=== PATIENT | male | born 1965 | race African-American/Black ===

== ENCOUNTER 2016-09-12 05:39 | Emergency (ER) | payer BC, OTHER ==
[~2016-09-12] VITALS: Ht 195.6 cm; Wt 127.0 kg
[~2016-09-12 05:39] MED LIST: METF500T PO; RIVA20TA PO
[2016-09-12] MEDS ORDERED: MORPHINE SULFATE 2 MG/ML CPJ (NOT FOR IM USE) IV ONE (10:00)
[2016-09-12] MEDS ORDERED: KETOROLAC 30MG/ML VIAL IV NR (12:00)
[2016-09-12 12:39] VITALS: BP 150/84
== END 2016-09-12 12:53 | disposition home or self-care (01) ==
LOC: ER 05:39
DX: S00.93XA Contusion of unspecified part of head, initial encounter (principal); F17.200 Nicotine dependence, unspecified, uncomplicated; Z88.0 Allergy status to penicillin; W22.8XXA Striking against or struck by other objects, initial encounter; Y93.39 Activity, other involving climbing, rappelling and jumping off; Y99.8 Other external cause status; Y92.488 Other paved roadways as the place of occurrence of the external cause
CPT/HCPCS: 70450; 96374; 96375; 99284; J1885; J2270; Z7610

== ENCOUNTER 2017-11-26 21:49 | Emergency (ER) | payer OTHER ==
[~2017-11-26] VITALS: Ht 195.6 cm; Wt 123.0 kg
[2017-11-26 23:18] LABS: CLARITY URINE CLOUDY (CLEAR); COLOR URINE DARK YELLOW (YELLOW); KETONES URINE TRACE (NEGATIVE); LEUKOCYTE ESTERASE URINE NEGATIVE (NEGATIVE); NITRITE URINE NEGATIVE (NEGATIVE); OCCULT BLOOD URINE NEGATIVE (NEGATIVE); PH URINE 5.5 (4.5-8.0); PROTEIN URINE 1+ (NEGATIVE); SPECIFIC GRAVITY URINE 1.038 (1.005-1.030)
[2017-11-26 23:52] LABS: HEMATOCRIT. 43.2 % (42.0-52.0); HEMOGLOBIN. 14.3 g/dL (14.0-18.0); MEAN CORPUSCULAR HEMOGLOBIN 27.3 pg (28.0-32.0); MEAN CORPUSCULAR VOLUME 82.7 fL (80.0-94.0); MEAN PLATELET VOLUME 8.2 fl (7.4-10.4); PLATELET 229 x1000/uL (130-400); RED BLOOD CELL COUNT 5.23 mill/uL (4.7-6.1); RED CELL DISTRIBUTION WIDTH 14.2 % (11.6-14.6)
[2017-11-26 23:56] LABS: CHLORIDE 103 mEq/L (98-107)
[2017-11-27 02:57] VITALS: BP 120/75
[2017-11-27 04:13] LABS: ATYPICAL LYMPHOCYTES 1; PLATELET ESTIMATE NORMAL
== END 2017-11-27 03:16 | disposition home or self-care (01) ==
LOC: ER 22:13
DX: N45.1 Epididymitis (principal); N45.2 Orchitis; R03.0 Elevated blood-pressure reading, without diagnosis of hypertension
CPT/HCPCS: 36415; 76870; 80053; 81003; 85025; 87086; 93976; 99285

== ENCOUNTER 2021-07-21 12:43 | Emergency (ER) | payer MEDICAID, OTHER ==
[~2021-07-21] VITALS: Ht 195.6 cm; Wt 84.0 kg
[2021-07-21 13:46] LABS: BASOPHILS % 0.8 % (0.0-2.0); EOSINOPHILS % 3.6 % (0.0-5.0); HEMATOCRIT. 41.7 % (42.0-52.0); HEMOGLOBIN. 13.6 g/dL (14.0-18.0); LYMPHOCYTES % 12.1 % (20.0-50.0); MEAN CORPUSCULAR HEMOGLOBIN 27.5 pg (28.0-32.0); MEAN CORPUSCULAR VOLUME 84.2 fL (80.0-94.0); MONOCYTES % 10.5 % (2.0-8.0); PLATELET 243 x1000/uL (130-400); RED BLOOD CELL COUNT 4.95 mill/uL (4.7-6.1); RED CELL DISTRIBUTION WIDTH 13.9 % (11.6-14.6)
[2021-07-21 14:25] LABS: CHLORIDE 106 mEq/L (98-107)
[2021-07-21] MEDS ORDERED: EPINEPHRINE 1:1000 1 MG/ML AMP IM ONE (17:30)
[2021-07-21] MEDS ORDERED: DIPHENHYDRAMINE 50MG/ML VIAL IV ONE (17:30)
[2021-07-21] MEDS ORDERED: METHYLPREDNISOLONE SOD SUCC 125 MG/2 ML VIAL IV ONE (17:30)
[2021-07-21] MEDS ORDERED: IOHEXOL-300 100 ML BOTTLE ONE (17:48)
[2021-07-21] MEDS ORDERED: CLINDAMYCIN 600 MG in DEXTROSE 5% WATER 50 ML IV ONE (18:45)
[2021-07-21] MEDS ORDERED: CLINDAMYCIN 600 MG PREMIX 50 ML IV NR (19:00)
[2021-07-22] MEDS ORDERED: CLINDAMYCIN 600 MG PREMIX 50 ML IV NR
[2021-07-22 11:38] VITALS: BP 124/80
== END 2021-07-22 12:50 | disposition admitted as inpatient to this hospital (09) ==
LOC: ER 12:43 → CANBEDREQ 07-22 14:55
DX: T78.40XA Allergy, unspecified, initial encounter (principal); X58.XXXA Exposure to other specified factors, initial encounter; R03.0 Elevated blood-pressure reading, without diagnosis of hypertension; Z88.0 Allergy status to penicillin
CPT/HCPCS: 36415; 70487; 80053; 83605; 85025; 87040; 96365; 96366; 96372; 96375; 99285; J1200; J2930; J3490; Q9967; J7060

== ENCOUNTER 2022-05-06 03:59 | Inpatient (IN) | payer MEDICAID, OTHER ==
[~2022-05-06] VITALS: Ht 195.6 cm; Wt 128.0 kg
[2022-05-06] MEDS ORDERED: TETANUS, DIPHTHERIA, PERTUSSIS VAC/PF 0.5ML (>10YR OLD) IM ONE (04:30)
[2022-05-06] MEDS ORDERED: ACETAMINOPHEN 500MG TABLET PO ONE (04:30)
[2022-05-06] MEDS ORDERED: ACET-2708 MT (05:10)
[2022-05-06] MEDS ORDERED: MORPHINE SULFATE 4 MG/ML CPJ (NOT FOR IM USE) IV STA (05:51)
[2022-05-06] MEDS ORDERED: ONDANSETRON HCL 4MG/2ML INJ IV STA (05:51)
[2022-05-06] MEDS ORDERED: SODIUM CHLORIDE 0.9% 1,000 ML IV ONE (06:00)
[2022-05-06 06:26] LABS: BASOPHILS % 0.5 % (0.0-2.0); EOSINOPHILS % 2.4 % (0.0-5.0); HEMATOCRIT. 44.2 % (42.0-52.0); HEMOGLOBIN. 14.5 g/dL (14.0-18.0); MEAN CORPUSCULAR HEMOGLOBIN 27.9 pg (28.0-32.0); MEAN CORPUSCULAR VOLUME 85.1 fL (80.0-94.0); MEAN PLATELET VOLUME 8.5 fl (7.4-10.4); MONOCYTES % 12.4 % (2.0-8.0); NEUTROPHILS % 66.7 % (40.0-76.0); PLATELET 228 x1000/uL (130-400); RED CELL DISTRIBUTION WIDTH 13.8 % (11.6-14.6)
[2022-05-06 06:36] LABS: CHLORIDE 100 mEq/L (98-107)
[2022-05-06 06:41] LABS: INR 0.9; PARTIAL THROMBOPLASTIN TIME 24.8 sec (23.4-31.0)
[2022-05-06] MEDS ORDERED: LEVETIRACETAM 500MG PREMIX 100 ML IV ONE (09:30)
[2022-05-06] MEDS ORDERED: LEVETIRACETAM 500MG PREMIX 100 ML IV SCH (10:00)
[2022-05-06 12:11] LABS: *AMPHETAMINES SCREEN URINE NEGATIVE (NEGATIVE); *BARBITURATES SCREEN URINE NEGATIVE (NEGATIVE); *BENZODIAZEPINES SCREEN URINE NEGATIVE (NEGATIVE); *COCAINE SCREEN URINE PRESUMTIVE POSITIVE (NEGATIVE); CANNABINOID URINE SCREEN NEGATIVE (NEGATIVE); METHADONE URINE SCREEN NEGATIVE (NEGATIVE); OPIATES URINE SCREEN PRESUMTIVE POSITIVE (NEGATIVE); PHENCYCLIDINE URINE SCREEN NEGATIVE (NEGATIVE)
[2022-05-06] MEDS ORDERED: CLONIDINE 0.1MG TABLET PO PRN (12:45)
[2022-05-06] MEDS ORDERED: IPRATROPIUM/ALBUTEROL 0.5-3(2.5)MG/3ML NEB HHN PRN (12:45)
[2022-05-06] MEDS ORDERED: ACETAMINOPHEN 325MG TABLET PO PRN (12:45)
[2022-05-06] MEDS ORDERED: DIPHENHYDRAMINE 50MG/ML VIAL IV PRN (12:45)
[2022-05-06] MEDS ORDERED: ONDANSETRON HCL 4MG/2ML INJ IV PRN (12:45)
[2022-05-06] MEDS ORDERED: NALOXONE HCL 0.4MG/ML VIAL IV PRN (13:00)
[2022-05-06] MEDS: DEXT 5%/0.9% NACL 1,000 ML IV SCH ×2 (14:19→22:25)
[2022-05-06 17:54] VITALS: BP 138/64
[2022-05-06] MEDS ORDERED: DEXTROSE 50% WATER 50ML SYRINGE IV PRN (19:45)
[2022-05-06 20:00] VITALS: BP 136/91
[2022-05-06] MEDS: BLOOD SUGAR DIAGNOSTIC STRIP TEST SCH (21:00)
[2022-05-06] MEDS: LEVETIRACETAM 500MG PREMIX 100 ML IV SCH (22:27)
[2022-05-06] MEDS: INSULIN LISPRO 100 UNITS/ML SUBCUT SCH (23:03)
[2022-05-06 23:36] VITALS: BP 115/62
[2022-05-07] VITALS (11 sets, daily range): BP systolic 115–144; BP diastolic 56–97
[2022-05-07] MEDS: DEXT 5%/0.9% NACL 1,000 ML IV SCH ×2 (06:00→12:34)
[2022-05-07] MEDS: BLOOD SUGAR DIAGNOSTIC STRIP TEST SCH ×4 (06:18→21:02)
[2022-05-07 06:32] LABS: CHLORIDE 105 mEq/L (98-107)
[2022-05-07 06:48] LABS: BASOPHILS % 0.4 % (0.0-2.0); EOSINOPHILS % 3.8 % (0.0-5.0); HEMATOCRIT. 42.1 % (42.0-52.0); LYMPHOCYTES % 20.8 % (20.0-50.0); MEAN CORPUSCULAR VOLUME 84.4 fL (80.0-94.0); MEAN PLATELET VOLUME 8.8 fl (7.4-10.4); MONOCYTES % 11.9 % (2.0-8.0); NEUTROPHILS % 63.1 % (40.0-76.0); PLATELET 191 x1000/uL (130-400); RED BLOOD CELL COUNT 4.99 mill/uL (4.7-6.1); RED CELL DISTRIBUTION WIDTH 13.3 % (11.6-14.6)
[2022-05-07 07:08] LABS: HEPATITIS B SURFACE ANTIGEN NEGATIVE
[2022-05-07] MEDS ORDERED: CEFAZOLIN 1000MG PREMIX 50 ML IV ONE (09:15)
[2022-05-07] MEDS ORDERED: LIDOCAINE HCL 1% 10 MG/ML 10ML VIAL ONE (09:22)
[2022-05-07] MEDS ORDERED: IOHEXOL-300 100 ML BOTTLE ONE (09:23)
[2022-05-07] MEDS: INSULIN LISPRO 100 UNITS/ML SUBCUT SCH ×4 (09:27→21:00)
[2022-05-07] MEDS ORDERED: CLINDAMYCIN 600MG PREMIX 50 ML IV NR ×2 (09:30)
[2022-05-07] MEDS: LEVETIRACETAM 500MG PREMIX 100 ML IV SCH ×2 (11:18→21:24)
[2022-05-08] VITALS: BP 144/85
[2022-05-08] MEDS: SODIUM CHLORIDE 0.9% 1,000 ML IV SCH ×3 (00:24→15:05)
[2022-05-08 04:00] VITALS: BP 103/58
[2022-05-08 06:26] LABS: BASOPHILS % 0.2 % (0.0-2.0); EOSINOPHILS % 2.3 % (0.0-5.0); HEMATOCRIT. 42.8 % (42.0-52.0); LYMPHOCYTES % 19.1 % (20.0-50.0); MEAN CORPUSCULAR HEMOGLOBIN 27.6 pg (28.0-32.0); MEAN CORPUSCULAR VOLUME 84.4 fL (80.0-94.0); MEAN PLATELET VOLUME 8.9 fl (7.4-10.4); MONOCYTES % 12.6 % (2.0-8.0); NEUTROPHILS % 65.8 % (40.0-76.0); PLATELET 176 x1000/uL (130-400); RED BLOOD CELL COUNT 5.08 mill/uL (4.7-6.1); RED CELL DISTRIBUTION WIDTH 13.6 % (11.6-14.6)
[2022-05-08] MEDS: BLOOD SUGAR DIAGNOSTIC STRIP TEST SCH ×2 (06:55→12:42)
[2022-05-08 07:11] LABS: CHLORIDE 103 mEq/L (98-107)
[2022-05-08] MEDS: INSULIN LISPRO 100 UNITS/ML SUBCUT SCH ×2 (07:20→12:43)
[2022-05-08 08:00] VITALS: BP 110/63
[2022-05-08] MEDS: MORPHINE SULFATE 2 MG/ML CPJ (NOT FOR IM USE) IV PRN ×2 (08:33→08:48)
[2022-05-08] MEDS: LEVETIRACETAM 500MG PREMIX 100 ML IV SCH (08:47)
[2022-05-08 12:00] VITALS: BP 127/60
[2022-05-08 14:51] VITALS: BP 127/60
[2022-05-08 16:00] VITALS: BP 135/81
== END 2022-05-08 16:32 | disposition home or self-care (01) | DRG 57 ==
LOC: ER 03:59 → MICUSO 09:54 → EDBEDREQTM 09:58 → EDBEDREQ 09:58 → 3WST 17:55
PROVIDERS: ADMIT Internal Medicine; ATTEND Internal Medicine
PROC: 0HQ0XZZ Repair Scalp Skin, External Approach (ICD-10-PCS; 2022-05-06)
PROC: 06H03DZ Insertion of Intraluminal Device into Inferior Vena Cava, Percutaneous Approach (ICD-10-PCS; principal; 2022-05-07)
DX: S06.2XAA Diffuse traumatic brain injury with loss of consciousness status unknown, initial encounter (principal); I82.431 Acute embolism and thrombosis of right popliteal vein; S01.01XA Laceration without foreign body of scalp, initial encounter; E11.65 Type 2 diabetes mellitus with hyperglycemia; I51.7 Cardiomegaly; Z59.00 Homelessness unspecified; Z20.822 Contact with and (suspected) exposure to COVID-19; Z79.01 Long term (current) use of anticoagulants; Z88.0 Allergy status to penicillin; X58.XXXA Exposure to other specified factors, initial encounter; Y92.89 Other specified places as the place of occurrence of the external cause; Y99.8 Other external cause status; Z79.4 Long term (current) use of insulin
CPT/HCPCS: 36415; 37191; 70551; 71045; 80048; 80053; 80305; 80320; 82962; 83036; 85025; 86803; 86850; 86900; 87340; 87426; 90715; 92610; 93005; 93970; 97162; 97166; 99291; C1769; C1880; J1200; J1644; J1815; J1953; J2270; J2405; J3490; J7030; J7042; Q9967; G0480

== ENCOUNTER 2022-07-22 16:08 | Emergency (ER) | payer MEDICAID, OTHER ==
[~2022-07-22] VITALS: Ht 195.6 cm; Wt 127.0 kg
[~2022-07-22 16:08] MED LIST changes: +ACET-2708 MT
[2022-07-22 16:43] VITALS: BP 141/102
== END 2022-07-22 17:51 | disposition home or self-care (01) ==
LOC: ER 16:08
DX: S01.91XD Laceration without foreign body of unspecified part of head, subsequent encounter (principal); E11.9 Type 2 diabetes mellitus without complications; Z88.0 Allergy status to penicillin; X58.XXXD Exposure to other specified factors, subsequent encounter
CPT/HCPCS: 99281; Z7610

== ENCOUNTER 2022-10-18 22:25 | Emergency (ER) | payer OTHER ==
[~2022-10-18] VITALS: Ht 182.9 cm; Wt 95.0 kg
[2022-10-18 22:32] VITALS: O2SAT 97
[2022-10-19 01:29] LABS: BASOPHILS % 0.5 % (0.0-2.0); EOSINOPHILS % 1.7 % (0.0-5.0); HEMATOCRIT. 42.3 % (42.0-52.0); HEMOGLOBIN. 14.5 g/dL (14.0-18.0); LYMPHOCYTES % 18.2 % (20.0-50.0); MEAN CORPUSCULAR HEMOGLOBIN 28.2 pg (28.0-32.0); MEAN CORPUSCULAR HGB CONC 34.2 g/dL (31.0-37.0); MEAN CORPUSCULAR VOLUME 82.3 fL (80.0-94.0); MEAN PLATELET VOLUME 8.1 fl (7.4-10.4); MONOCYTES % 11.2 % (2.0-8.0); NEUTROPHILS % 68.4 % (40.0-76.0); PLATELET 207 x1000/uL (130-400); RED BLOOD CELL COUNT 5.14 mill/uL (4.7-6.1); WHITE BLOOD COUNT 9.7 x1000/uL (4.5-11.0)
[2022-10-19 01:31] LABS: CHLORIDE 102 mEq/L (98-107); INDEX HEMOLYSI 1 (1-3); INDEX ICTERIC 1 (1-4); INDEX LIPEMIC 1 (1-3); POTASSIUM 3.8 mEq/L (3.5-5.1); SODIUM 132 mEq/L (136-145)
[2022-10-19 01:40] LABS: ALANINE AMINOTRANSFERASE 27 IU/L (13-61); ALBUMIN 3.6 g/dL (3.4-5.0); ASPARTATE AMINOTRANSFERASE 24 IU/L (15-37); BILIRUBIN TOTAL 0.8 mg/dL (0.1-1.0); CALCIUM 9.1 mg/dL (8.5-10.1); CARBON DIOXIDE 24 mEq/L (21-32); CREATININE 0.9 mg/dL (0.6-1.3); GLUCOSE 324 mg/dL (70-105); PROTEIN TOTAL 8.1 g/dL (6.0-8.3); UREA NITROGEN BLOOD 19 mg/dL (7-21)
[2022-10-19 05:10] LABS: CLARITY URINE CLEAR (CLEAR); COLOR URINE YELLOW (YELLOW); GLUCOSE URINE 3+ (NEGATIVE); KETONES URINE TRACE (NEGATIVE); LEUKOCYTE ESTERASE URINE NEGATIVE (NEGATIVE); NITRITE URINE NEGATIVE (NEGATIVE); OCCULT BLOOD URINE NEGATIVE (NEGATIVE); PROTEIN URINE NEGATIVE (NEGATIVE); SPECIFIC GRAVITY URINE 1.037 (1.005-1.030); UROBILINOGEN URINE 0.2 E.U./dL (0.2-1.0)
[2022-10-19 06:36] LABS: SQUAMOUS EPITHELIAL CELL URINE FEW /lpf (RARE/1+)
[2022-10-19 06:37] LABS: WBC URINE 0-2 /hpf (0-2)
[2022-10-19 06:38] LABS: BACTERIA URINE NONE SEEN; RBC URINE NONE SEEN /hpf (0-2)
[2022-10-19] MEDS ORDERED: ASPIRIN 325MG EC TABLET PO ONE (12:00)
[2022-10-19 15:51] VITALS: BP 149/96; PULSE 92; RESP 18; TEMP 98.1
[2022-10-19] MEDS ORDERED: GADOTERATE MEGLUMINE 5 MMOL/10 ML VIAL IV ONE (18:42)
== END 2022-10-19 14:37 | disposition short-term general hospital (02) ==
LOC: ER 22:25
DX: I63.9 Cerebral infarction, unspecified (principal); E11.65 Type 2 diabetes mellitus with hyperglycemia; Z88.0 Allergy status to penicillin
CPT/HCPCS: 99284; 82962; 70553; 93970; 70450; A9577

== ENCOUNTER 2024-06-23 10:29 | Emergency (ER) | payer OTHER ==
[~2024-06-23] VITALS: Ht 195.6 cm; Wt 119.0 kg
[2024-06-23 10:35] VITALS: O2SAT 99
[2024-06-23 10:38] VITALS: BP 121/71; PULSE 89; RESP 18; TEMP 36.8; O2SAT 97
== END 2024-06-23 11:03 | disposition home or self-care (01) ==
LOC: ER 10:29
DX: Z00.00 Encounter for general adult medical examination without abnormal findings (principal); I82.401 Acute embolism and thrombosis of unspecified deep veins of right lower extremity; E11.9 Type 2 diabetes mellitus without complications; Z88.0 Allergy status to penicillin
CPT/HCPCS: 99281

== ENCOUNTER 2024-07-10 15:43 | Emergency (ER) | payer OTHER ==
[~2024-07-10] VITALS: Ht 195.6 cm; Wt 100.0 kg
[2024-07-10 16:19] VITALS: O2SAT 98
[2024-07-10 18:11] VITALS: BP 150/92; PULSE 88; RESP 16; TEMP 36.9; O2SAT 98
== END 2024-07-10 18:26 | disposition home or self-care (01) ==
LOC: ER 15:43
DX: L97.519 Non-pressure chronic ulcer of other part of right foot with unspecified severity (principal); E11.621 Type 2 diabetes mellitus with foot ulcer; Z86.73 Personal history of transient ischemic attack (TIA), and cerebral infarction without residual deficits; Z88.0 Allergy status to penicillin; Z79.899 Other long term (current) drug therapy
CPT/HCPCS: 99281

== ENCOUNTER 2025-01-31 14:54 | Emergency (ER) | payer MEDICAID, OTHER ==
[~2025-01-31] VITALS: Ht 193 cm; Wt 95.0 kg
[2025-01-31 14:58] VITALS: O2SAT 95
[2025-01-31 15:15] VITALS: BP 131/82; PULSE 98; RESP 18; TEMP 36.8; O2SAT 98
[2025-01-31] MEDS ORDERED: APIX5TAB MT (18:44)
[2025-01-31 19:10] LABS: CREATININE 1.0 mg/dL (0.6-1.3); UREA NITROGEN BLOOD 16 mg/dL (9-23)
== END 2025-01-31 19:26 | disposition home or self-care (01) ==
LOC: ER 14:54
DX: I82.491 Acute embolism and thrombosis of other specified deep vein of right lower extremity (principal); E11.9 Type 2 diabetes mellitus without complications; I87.2 Venous insufficiency (chronic) (peripheral); Z79.01 Long term (current) use of anticoagulants; Z79.84 Long term (current) use of oral hypoglycemic drugs; Z86.718 Personal history of other venous thrombosis and embolism; Z86.73 Personal history of transient ischemic attack (TIA), and cerebral infarction without residual deficits; Z88.0 Allergy status to penicillin
CPT/HCPCS: 36415; 80048; 93971; 99284